=== PATIENT | female | born 1985 | race Caucasian/White ===

== ENCOUNTER 2016-10-26 08:40 | Inpatient (IN) | payer OTHER ==
[2016-10-26] MEDS ORDERED: ELECTROLYTE-148 SOLN 1,000 ML IV SCH ×2 (08:45→09:15)
[2016-10-26] MEDS ORDERED: CITRIC ACID/SODIUM CITRATE 30 ML UNIT-DOSE CUP PO ONE ×2 (08:45→09:43)
[2016-10-26 09:38] VITALS: BMI 34.5
[2016-10-26] MEDS ORDERED: ELECTROLYTE-148 SOLN 500 ML IV ONE (09:43)
[2016-10-26 09:49] LABS: INR 1.09 (0.82-1.09)
--- NOTE | 2016-10-26 09:50 | HP ---
Past Medical History - Admission Chief Complaint: / Breech presentation History of Present Illness: 31 hebrew @ 39 weeks gestation, EDC 10/31/16, is Pre op for primary . History Source: Patient Limitations to Obtaining History: No Limitations - Past Medical History ...: 2 ...Para: 0 ...Spon : 1 ...EDC by Priyank: 10/31/16 - Past Surgical History Past Surgical History: Yes: None Hx Myomectomy: No Hx Transabdominal Cerclage: No - Smoking History Smoking history: Never smoked Have you smoked in the past 12 months: No - Alcohol/Substance Use Hx Alcohol Use: No History of Substance Use: reports: None - Social History Usual Living Arrangement: Yes: With Spouse History of Recent Travel: No Home Medications - Allergies Allergies/Adverse Reactions: Allergies Allergy/AdvReac Type Severity Reaction Status Date / Time No Known Allergies Allergy Verified 10/26/16 09:41 - Home Medications Home Medications: Ambulatory Orders Iron 1 tab PO DAILY 10/26/16 Vitamins (Sjr) - 1 tab PO DAILY 10/26/16 Family Disease History - Family Disease History Family History: Unremarkable Review of Systems - Review of Systems Constitutional: reports: No Symptoms Eyes: reports: No Symptoms HENT: reports: No Symptoms Neck: reports: No Symptoms Cardiovascular: reports: No Symptoms Respiratory: reports: No Symptoms Gastrointestinal: reports: No Symptoms Genitourinary: reports: No Symptoms Breasts: reports: No Symptoms Reported Musculoskeletal: reports: No Symptoms Integumentary: reports: No Symptoms Neurological: reports: No Symptoms Endocrine: reports: No Symptoms Hematology/Lymphatic: reports: No Symptoms Psychiatric: reports: No Symptoms Pain Intensity: 0 Physical Exam - Maternity Vital Signs: Vital Signs Temperature 98.3 F 10/26/16 09:23 Pulse Rate 98 H 10/26/16 09:23 Respiratory Rate 20 10/26/16 09:23 Blood Pressure 115/77 10/26/16 09:23 O2 Sat by Pulse Oximetry (%) Constitutional: Yes: Well Nourished Eyes: Yes: Conjunctiva Clear HENT: Yes: Atraumatic Neck: Yes: Supple, Trachea Midline Cardiovascular: Yes: Regular Rate and Rhythm Lungs: Clear to auscultation - Abdominal Exam/OB Number of Fetuses: Single Presentation: Breech - Vaginal Exam/OB Vaginal Bleediing: No - Physical Exam ...Motor Strength: WNL Psychiatric: Yes: Alert, Oriented Problem List - Problems (1) Code(s): Z34.90 - ENCNTR FOR SUPRVSN OF NORMAL , UNSP, UNSP TRIMESTER Assessment/Plan IUP @ 39 weeks Breech presentation Pre op for primary Consent signed Anesthesia to see patient
[2016-10-26 09:52] LABS: ACTIVATED PTT 27.8 SECONDS (26.9-34.4)
[2016-10-26] MEDS ORDERED: TUBERCULIN PPD 5 TU/0.1ML SYRINGE (IN PATIENT USE ONLY) ID ONE (11:00)
[2016-10-26] MEDS ORDERED: ONDANSETRON 4 MG/2 ML VIAL IVPB PRN (11:04)
[2016-10-26] MEDS ORDERED: IBUPROFEN 800 MG/8 ML IJ IVPB ONE (12:45)
[2016-10-26] MEDS ORDERED: oxyCODONE HCL 5 MG TABLET PO PRN ×2 (18:17)
[2016-10-26] MEDS ORDERED: IBUPROFEN 800 MG/8 ML IJ IVPB PRN (18:18)
--- NOTE | 2016-10-27 01:47 | OP ---
Operative Note - Note: Operative Date: 10/26/16 Pre-Operative Diagnosis: Breech presentation Operation: Primary Low Transverse Findings: Baby girl in alok breech position Post-Operative Diagnosis: Same as Pre-op Surgeon: Sabi Small Visiting Professor: Felix Lui Anesthesia: Spinal Specimens Removed: Placenta Estimated Blood Loss (mls): 700 Operative Report Dictated: Yes
--- NOTE | 2016-10-27 01:53 | DS ---
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 Vital Signs: Vital Signs Temperature 98.0 F 10/26/16 18:00 Pulse Rate 76 10/26/16 18:00 Respiratory Rate 18 10/27/16 01:00 Blood Pressure 91/57 10/26/16 18:00 O2 Sat by Pulse Oximetry (%) Constitutional: Yes: Well Nourished Eyes: Yes: Conjunctiva Clear HENT: Yes: Atraumatic Neck: Yes: Supple Cardiovascular: Yes: Regular Rate and Rhythm Respiratory: Yes: Regular Gastrointestinal: Yes: Normal Bowel Sounds External Genitalia: Yes: Normal Vaginal Exam: Yes: Normal Cervix: Yes: Normal Uterus: Yes: Firm Wound/Incision: Yes: Clean/Dry, Well Approximated, Steri Strips (in place) Neurological: Yes: Alert, Oriented ...Motor Strength: WNL Psychiatric: Yes: Alert, Oriented Delivery - Delivery Section: Primary Type of Anesthesia: Spinal Episiotomy/Laceration: None EBL (cc): 700 Delivery, Single - Stages of Labor Date of Delivery: 10/26/16 Time of Delivery: 10:43 Time Placenta Delivered: 10:45 - Condition of Infant Drug Abuse Program Coordinator/Chief 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 Officer Present: Yes Name: Davi Thakkar Infant Gender: Female Weight: 8 lb 5 oz Total Hours ROM (Hrs/Mins): 1min - 1 Minute Total Score: 8 5 Minutes Total Score: 9 - [place] Feeding Plan Initial Plan: Exclusive throughout hospitalization Discharge Summary Reason For Visit: CSECTION Current Active Problems (Acute) Status post primary low transverse section (Acute) Procedures: Principal: Prmary Low transverse Hospital Course: Routine Post op care - Instructions Diet, Activity, Other Instructions: Regular diet Wound care No driving, no lifting x 6 weeks Disposition: HOME - Home Medications Comprehensive Discharge Medication List: Ambulatory Orders Iron 1 tab PO DAILY 10/26/16 Vitamins (Sjr) - 1 tab PO DAILY 10/26/16
[2016-10-27] MEDS: ACETAMINOPHEN 325 MG TABLET (FP) PO PRN ×5 (05:01→23:23)
[2016-10-27] MEDS: IBUPROFEN 600 MG TABLET (FP) PO PRN ×5 (05:01→23:22)
--- NOTE | 2016-10-27 08:09 | PN ---
Post Progress Note - Subjective Subjective: 31 yo Para 1 status post primary , seen and evaluated. Doing well. Post Day: 1 Type of Delivery: Primary C/S Vital Signs: Vital Signs Temperature 98.0 F 10/27/16 06:00 Pulse Rate 79 10/27/16 06:00 Respiratory Rate 18 10/27/16 06:00 Blood Pressure 107/58 10/27/16 06:00 O2 Sat by Pulse Oximetry (%) Breast Exam: Yes: Soft Uterus: Yes: Fundus Firm Incision: Yes: Dressing dry and intact Abdomen/GI: Yes: Abdomen soft Lochia: Yes: Rubra Lochia, amount: Small Extremities: Yes: Calves non-tender Perineum: Yes: Intact Activity: Ambulating Problem List - Problems (1) Code(s): Z34.90 - ENCNTR FOR SUPRVSN OF NORMAL , UNSP, UNSP TRIMESTER Assessment/Plan Status post primary due to Breech presentation Stable Ambulation Analgesia as needed Continue routine care
[2016-10-27] MEDS ORDERED: DIPHTH,PERTUSS(ACELL),TET 0.5 ML DISP.SYRIN IM ONE (12:00)
--- NOTE | 2016-10-27 14:31 | PN ---
Progress Note (short form) - Note Progress Note: Anesthesia postop note 31 y/o s/p spinal anesthesia/duramorph for section POD#1, vss, aaox3, pain well controlled, sensory motor intact distally No anesthesia complications.
[2016-10-28] MEDS: ACETAMINOPHEN 325 MG TABLET (FP) PO PRN ×3 (03:16→21:13)
[2016-10-28] MEDS: IBUPROFEN 600 MG TABLET (FP) PO PRN ×3 (03:17→21:12)
--- NOTE | 2016-10-28 16:16 | PN ---
Post Progress Note - Subjective Subjective: 31 yo Para 1, status post primary , seen and evaluated. Doing well, no complaints. Type of Delivery: Primary C/S Vital Signs: Vital Signs Temperature 98.7 F 10/28/16 08:41 Pulse Rate 69 10/28/16 08:41 Respiratory Rate 20 10/28/16 08:41 Blood Pressure 100/68 10/28/16 08:41 O2 Sat by Pulse Oximetry (%) Breast Exam: Yes: Soft Uterus: Yes: Fundus Firm Incision: Yes: Dressing dry and intact Abdomen/GI: Yes: Abdomen soft, Tolerating PO Lochia: Yes: Rubra Lochia, amount: Small Extremities: Yes: Calves non-tender Perineum: Yes: Intact Activity: Ambulating Problem List - Problems (1) Code(s): Z34.90 - ENCNTR FOR SUPRVSN OF NORMAL , UNSP, UNSP TRIMESTER Assessment/Plan Status post primary due to Breech presentation Stable Ambulation Analgesia as needed Continue routine care
[2016-10-28] MEDS ORDERED: SIMETHICONE 80 MG TAB.CHEW (FP) PO PRN (16:29)
[2016-10-28] MEDS ORDERED: IBUPROFEN 600 MG TABLET (FP) PO PRN (16:29)
[2016-10-28] MEDS ORDERED: METHYLERGONOVINE MALEATE 0.2 MG/1 ML AMP IM PRN (16:29)
[2016-10-28] MEDS ORDERED: SENNOSIDES/DOCUSATE COMBO (SENNA PLUS) TABLET (UD) PO PRN (22:00)
[2016-10-29 07:12] LABS: BASOPHIL 0.2 % (0-2.0); EOSINOPHIL 2.4 % (0-4.5); MEAN CELL VOLUME 85.4 fl (80-96); MEAN PLT VOLUME 8.6 fl (7.5-11.1); NEUTROPHILS 76.4 % (42.8-82.8); PLATELET COUNT 224 K/MM3 (134-434); RDW 15.1 % (11.6-15.6); WHITE BLOOD COUNT 10.1 K/mm3 (4.0-10.0)
[2016-10-29 12:58] VITALS: BP 110/64; PULSE 72; TEMP 98.7
[2016-10-29] MEDS ORDERED: BISACODYL 10 MG SUPP.RECT RC PRN (16:30)
--- NOTE | 2016-10-31 15:15 | PATH ---
Surgical Pathology Report Patient Name: ELIZABETH WALTON Med. Rec. #: [id number] /Age/Gender: 1985 (Age: 31) / F Account: [id number] Location: [facility] OBS/ELECTRONIC COURT RECORDER Taken: 10/26/2016 Received: 10/27/2016 Reported: 10/31/2016 Physicians: Sabi Small M.D. Specimen(s) Received PLACENTA Clinical History [id number]; 39.2 gestational weeks Primary c/section Final Diagnosis PLACENTA, DELIVERY: FOCALLY DISRUPTED THIRD TRIMESTER PLACENTA WITH MODERATE PREVILLOUS, PERIVILLOUS, AND PRECHORIONIC FIBRIN DEPOSITION, THREE VESSEL UMBILICAL CORD, AND PLACENTAL MEMBRANES WITH FOCAL AMNION HYPERPLASIA. Electronically Signed Nik Andrade M.D. Gross Description The specimen is received fresh, labeled "placenta" and is a 554 gram, 22.0 x 19.5 x 2.7 cm placenta with attached membranes and umbilical cord. The attached membranes are cheng, translucent with focal opacities and insert marginally. The umbilical cord measures 32 cm in length and averages 1.3 cm in diameter. The cord inserts eccentrically, 5 cm. to the nearest margin. No true knots or strictures are identified. Cut surface of the umbilical cord reveals 3 vessels. The surface is carrion-blue with fibrin deposition and appropriate caliber vessels. The maternal surface is red-brown with focal defects. Sectioning reveals red-brown, spongy parenchyma. No focal lesions are identified. Supervisor Fitting sections are submitted in three cassettes as follows: 1- membrane rolls and umbilical cord; 2-3- full thickness sections of placenta. 10/28/2016 [facility]10/28/2016
== END 2016-10-29 13:00 | disposition home or self-care (01) | DRG 371 ==
LOC: JLDR 08:40 → J3W 12:34
PROVIDERS: ADMIT Obstetrics & Gynecology; ATTEND Obstetrics & Gynecology
PROC: 10D00Z1 Extraction of Products of Conception, Low, Open Approach (ICD-10-PCS; principal; 2016-10-26)
DX: O32.1XX0 Maternal care for breech presentation, not applicable or unspecified (principal); Z3A.39 39 weeks gestation of pregnancy; Z37.0 Single live birth
CPT/HCPCS: 36415; 85025; 85610; 85730; 88307-TC; 90715